=== PATIENT | female | born 1965 | race Two or more races ===

== ENCOUNTER 2016-11-23 22:14 | Emergency (ER) | payer OTHER ==
[~2016-11-23] VITALS: Ht 162.6 cm; Wt 73.5 kg
[2016-11-23 22:17] VITALS: Ht 162.6 cm; Wt 73.5 kg
--- NOTE | 2016-11-23 23:19 | ERD ---
ER Documentation Chief Complaint Date/Time DATE: 11/23/16 TIME: 23:18 Chief Complaint sp trip and fall, left elbow pain/ swelling HPI 51-year-old female comes in status post trip and fall complaining of left elbow pain. She states that she fell onto her elbow complains of lateral elbow pain, radiating to the wrist, sharp, with swelling, and improved with ibuprofen 3 hours ago. She denies weakness. She has no shoulder pain. ROS All systems reviewed and are negative except as per history of present illness. Medications Home Meds Active Scripts Ibuprofen* (Motrin*) 600 Mg Tab, 600 MG PO Q6, #30 TAB Prov:BREANNA ESCOBAR PA-C 11/24/16 Hydrocodone/Acetaminophen (Gaston 5-325 Tablet) 1 Each Tablet, 1 TAB PO Q6H Y for PAIN, #20 TAB Prov:BREANNA ESCOBAR PA-C 11/24/16 Allergies Allergies: Coded Allergies: No Known Allergy (Unverified , 06/01/11) PMhx/Soc History of Surgery: No Anesthesia Reaction: No Hx Neurological Disorder: No Hx Respiratory Disorders: No Hx Cardiac Disorders: No Hx Psychiatric Problems: No Hx Miscellaneous Medical Probl: No Hx Alcohol Use: No Hx Substance Use: No Hx Tobacco Use: No Physical Exam Vitals Vital Signs Date Time Temp Pulse Resp B/P Pulse Ox O2 Delivery O2 Flow Rate FiO2 11/23/16 22:17 97.8 91 20 129/70 98 Physical Exam General: Well-developed, well-nourished. The patient appears in no acute distress. HEENT: Head is normocephalic, atraumatic. No scleral icterus. Neck: Supple. Nontender. Lungs: Clear to auscultation. Normal air movement. Heart: Regular rate and rhythm. S1 and S2 are normal. No murmurs, gallops, or rubs. Abdomen: Nondistended. Extremities: Tenderness over the left radial head, there is tenderness, there is no laceration, no abrasion. She is able to extend and flex the elbow fully. There is no wrist drop, patient is able to make a thumbs up and okay sign. Neurologic: Alert and oriented 3. No focal deficits. Normal speech and gait. Skin: Normal turgor. No rash or lesions. Results 24 hrs Current Medications Medications (Trade) Dose Ordered Sig/Joe Route PRN Reason Start Time Stop Time Status Last Admin Dose Admin Acetaminophen/ Hydrocodone Bitart (Gaston ()) 1 tab ONCE ONCE PO 11/23/16 23:30 11/23/16 23:31 DC 11/23/16 23:48 DIAGNOSTIC IMAGING REPORT Patient: KATHARINA ESQUEDA : 1965 Age: 51 Sex: F MR #: [id number] DOS: 11/23/16 2312 Ordering MD: BREANNA ESCOBAR PA-C Location: [facility] Room/Bed: PROCEDURE: XR Elbow. CLINICAL INDICATION: Trauma TECHNIQUE: AP, lateral and oblique views of the left elbow were performed. COMPARISON: There are no similar studies submitted for comparison. FINDINGS: There is normal bone mineralization. There is an acute, nondisplaced fracture within the head of the radius seen on the oblique view only. No osseous lesion is identified. Large joint effusion is present. IMPRESSION: Acute fracture in the radial head with large joint effusion. RPTAT: HIKT .Emanuel Alston MD, MD Date Time Electronically viewed and signed by .Emanuel Alston MD, MD on 11/24/2016 00:29 .T/ CC: BREANNA ESCOBAR PA-C Procedures/MDM ED course: She was given Gaston for pain, patient's left elbow was placed in a sling for comfort. Patient was placed in a long-arm splint. Splint Assessment : Neurovascularly intact post splint placement with good fit. MDM: 48-year-old female comes in status post trip and fall with left elbow pain , presents with an acute radial head fracture with effusion. She is neurovascularly intact, was placed in a sling, splint for follow-up. She is advised he needs to see orthopedics early next week. Patient's blood pressure was elevated (>120/80) but appears stable without evidence of hypertension emergency or urgency. The patient was counseled about the risks of hypertension and urged to pursue outpatient monitoring and therapy within a week with their primary care physician. Departure Diagnosis: Primary Impression: Radial head fracture Condition: Good BREANNA ESCOBAR PA-C Nov 23, 2016 23:19
[2016-11-23] MEDS ORDERED: HYDROCODONE/APAP (10/325) TAB PO ONE (23:30)
--- NOTE | 2016-11-24 00:29 | RADRPT ---
PROCEDURE: XR Elbow. CLINICAL INDICATION: Trauma TECHNIQUE: AP, lateral and oblique views of the left elbow were performed. COMPARISON: There are no similar studies submitted for comparison. FINDINGS: There is normal bone mineralization. There is an acute, nondisplaced fracture within the head of the radius seen on the oblique view only. No osseous lesion is identified. Large joint effusion is pre sent. IMPRESSION: Acute fracture in the radial head with large joint effusion. RPTAT: HIKT .Emanuel Alston MD, Date Time Electronically viewed and signed by .Emanuel Alston MD, on 11/24/2016 00:29 .T/
[2016-11-24] MEDS ORDERED: HYDR-906 PO (00:35)
[2016-11-24] MEDS ORDERED: IBUP-1542 PO (00:35)
== END 2016-11-24 01:30 | disposition home or self-care (01) ==
LOC: FTE 22:14
DX: S52.102A Unspecified fracture of upper end of left radius, initial encounter for closed fracture (principal); W01.0XXA Fall on same level from slipping, tripping and stumbling without subsequent striking against object, initial encounter; Y92.9 Unspecified place or not applicable
CPT/HCPCS: 29105; 73080; Z7502; Z7610